=== PATIENT | female | born 1995 | race Caucasian/White ===

== ENCOUNTER 2019-10-08 00:28 | Emergency (ER) | payer OTHER ==
--- NOTE | 2019-10-08 01:27 | ED ---
General Adult HPI - General Stated complaint: [facility] Time Seen by Provider: 10/08/19 00:38 Source: RN notes reviewed, old records reviewed - History of Present Illness Initial comments: Patient is 24-year-old female who presents emergency Department today with complaints of exposure of saliva into her eye. Patient reports that she rinsed her eye shortly afterwards. Patient states that she has no other complaints or eye irritation. Denies any visual changes. Patient was recently in the emergency department for industrial health accident. Review of Systems ROS Statement: Those systems with pertinent positive or pertinent negative responses have been documented in the HPI. ROS Other: All systems not noted in ROS Statement are negative. General Exam - General Exam Comments Initial Comments: Alert and oriented 24-year-old female. No acute distress. General appearance: alert, in no apparent distress Head exam: Present: atraumatic, normocephalic, normal inspection Eye exam: Present: normal appearance, PERRL, EOMI. Absent: scleral icterus, conjunctival injection, periorbital swelling ENT exam: Present: normal exam, mucous membranes moist Neck exam: Present: normal inspection. Absent: tenderness, meningismus, lymphadenopathy Respiratory exam: Present: normal lung sounds bilaterally. Absent: respiratory distress, wheezes, rales, rhonchi, stridor Cardiovascular Exam: Present: regular rate Back exam: Present: normal inspection Neurological exam: Present: alert, oriented X3, CN II-XII intact Psychiatric exam: Present: normal affect, normal mood Skin exam: Present: warm, dry, intact, normal color. Absent: rash Medical Decision Making - Medical Decision Making 24-year-old female presents emergency room today with exposure of saliva into patient's eye from another Patient that she was taking care of. Patient reports she rinsed her eye shortly afterward. I did discuss with the Patient that there is low risk for blood borne diseases from saliva to eye. Patient agrees to this and declines any post exposure prophylaxis. Disposition Clinical Impression: Employee exposure to body fluids Disposition: HOME SELF-CARE Condition: Good Instructions (If sedation given, give patient instructions): Postexposure Prophylaxis (ED) Additional Instructions: There is any signs of redness swelling and concern for infection to the eye please return for reevaluation. Is patient prescribed a controlled substance at d/c from ED?: No Referrals: Astrid San DO [Primary Care Provider] - 1-2 days Time of Disposition: 01:26
[2019-10-08 02:13] VITALS: BP 129/83; PULSE 77; RESP 15; TEMP 98.8
== END 2019-10-08 02:23 | disposition home or self-care (01) ==
LOC: EC 00:28
DX: Z77.21 Contact with and (suspected) exposure to potentially hazardous body fluids (principal); Z57.8 Occupational exposure to other risk factors; Y92.69 Other specified industrial and construction area as the place of occurrence of the external cause; Y99.0 Civilian activity done for income or pay
CPT/HCPCS: 99283

== ENCOUNTER → 2019-11-28 | Outpatient (CLI) | payer BC | END | disposition home or self-care (01) | LOC: LABWHC1 11:03 | PROVIDERS: ATTEND Pediatrics Pediatric Infectious Diseases | DX: Z11.59 Encounter for screening for other viral diseases (principal) | CPT/HCPCS: U0003; C9803 ==

== ENCOUNTER → 2019-11-29 | Outpatient (CLI) | payer BC | END | disposition home or self-care (01) | LOC: LABWHC1 12:25 | PROVIDERS: ATTEND Pediatrics Pediatric Infectious Diseases | DX: Z11.59 Encounter for screening for other viral diseases (principal) | CPT/HCPCS: U0003; C9803 ==

== ENCOUNTER → 2020-05-11 | Outpatient (CLI) | payer MEDICAID | END | disposition home or self-care (01) | LOC: LABMAIN 20:06 | PROVIDERS: ATTEND Emergency Medicine | DX: Z20.828 Contact with and (suspected) exposure to other viral communicable diseases (principal) | CPT/HCPCS: 87635 ==

== ENCOUNTER → 2020-05-16 | Outpatient (CLI) | payer MEDICAID ==
--- NOTE | 2020-05-16 13:19 | XR ---
EXAMINATION TYPE: XR chest 2V DATE OF EXAM: 05/16/2020 COMPARISON: NONE TECHNIQUE: PA and lateral views submitted. HISTORY: Cough FINDINGS: The lungs are clear and there is no pneumothorax, pleural effusion, or focal pneumonia. Heart size normal. No overt failure. Mildly prominent central interstitium. IMPRESSION: 1. Correlate for bronchitis or viral interstitial pneumonitis.
== END | disposition home or self-care (01) ==
LOC: RADXRMAIN 13:07
PROVIDERS: ATTEND Family Medicine
DX: R05 Cough (principal)
CPT/HCPCS: 71046

== ENCOUNTER → 2021-05-11 | Outpatient (CLI) | payer MEDICAID, OTHER | END | disposition home or self-care (01) | LOC: LAB 17:44 | PROVIDERS: ATTEND Physician Assistant Medical | DX: Z20.822 Contact with and (suspected) exposure to COVID-19 (principal) | CPT/HCPCS: 87635 ==